=== PATIENT | male | born 1985 | race Caucasian/White ===

== ENCOUNTER 2023-03-15 21:58 | Emergency (ER) | payer MEDICAID ==
[~2023-03-15] VITALS: Ht 180.3 cm; Wt 90.7 kg
[2023-03-15] MEDS ORDERED: ONDANSETRON HCL/PF - ER 4 MG/2 ML VIAL IV ONE (23:00)
[2023-03-15] MEDS ORDERED: KETOROLAC TROMETHAMINE INJ 30 MG/ML VIAL IV ONE (23:00)
--- NOTE | 2023-03-15 23:05 | NUR ---
BIBSELF C/O RIGHT SIDE FLANK PAIN STARTED AT 5PM. PT AAO X 4, BREATHING UNLABORED. PT ATTACHED TO MONITOR AND PULSE OX. AWAITING MD URIBE.
[2023-03-15] MEDS ORDERED: ONDANSETRON HCL/PF 4 MG/2 ML VIAL ONE (23:12)
[2023-03-15] MEDS ORDERED: KETOROLAC TROMETHAMINE INJ 30 MG/ML VIAL ONE (23:12)
--- NOTE | 2023-03-15 23:16 | NUR ---
PROVIDE PT WITH URINE CUP; AWAITING URINE SAMPLE
--- NOTE | 2023-03-15 23:18 | NUR ---
IV line established at LAC 20g, blood drawn and sent to lab
[2023-03-15 23:27] LABS: BASOPHILS # (AUTO) 0.1 K/uL (0.0-0.2); BASOPHILS % (AUTO) 0.6 % (0.0-2.0); EOSINOPHILS % (AUTO) 0.5 % (0.0-6.0); HEMATOCRIT 42 % (39-51); HEMOGLOBIN 13.6 g/dL (13.5-17.5); LYMPHOCYTES # (AUTO) 1.4 K/uL (0.8-4.8); MEAN CORPUSCULAR HGB CONC 33 g/dl (31.0-36.0); MEAN CORPUSCULAR VOLUME 95 fL (80-96); MONOCYTES # (AUTO) 0.5 K/uL (0.1-1.30); MONOCYTES % (AUTO) 3.9 % (2.0-12.0); NEUTROPHILS # (AUTO) 11.7 K/uL (1.8-8.9); PLATELET COUNT (AUTO) 255 K/uL (150-450); RED BLOOD CELL COUNT(AUTO) 4.39 MIL/uL (4.5-6.0); WHITE BLOOD COUNT (AUTO) 13.8 K/uL (4.3-11.0)
--- NOTE | 2023-03-15 23:31 | NUR ---
PT TAKEN TO CT DEPT
[2023-03-15 23:37] LABS: CALCIUM, SERUM 9.8 mg/dL (8.5-10.1); CREATININE 1.2 mg/dL (0.6-1.3); POTASSIUM 3.6 mmol/L (3.5-5.1)
[2023-03-15 23:43] LABS: ALBUMIN 4.3 g/dL (3.4-5.0); BILIRUBIN,DIRECT 0.1 mg/dL (0.0-0.2); BILIRUBIN,TOTAL 0.4 mg/dL (0.2-1.0); TOTAL PROTEIN, SERUM 8.1 g/dL (6.4-8.2)
--- NOTE | 2023-03-16 00:20 | NUR ---
pt still unable to provide urine sample.
[2023-03-16 00:51] LABS: BILIRUBIN,URINE NEGATIVE (NEGATIVE); COLOR,URINE YELLOW (YELLOW); LEUKOCYTE ESTERASE ,URINE NEGATIVE (NEGATIVE); NITRITE, URINE NEGATIVE (NEGATIVE); PROTEIN,URINE NEGATIVE (NEGATIVE); UGLUCOSE NEGATIVE (NEGATIVE); UROBILINOGEN,URINE 0.2 EU/dL (0.2)
[2023-03-16] MEDS ORDERED: HYDR-3980 PO (04:37)
[2023-03-16] MEDS ORDERED: ONDA4TAB5 PO (04:37)
--- NOTE | 2023-03-16 04:57 | NUR ---
Patient discharged to home in stable condition. Written and verbal after care instructions given. Patient verbalizes understanding of instruction. Pt is ambulatory with a steady gait
[2023-03-16 04:58] VITALS: BP 132/78; TEMP 98.6; O2SAT 96
[2023-03-16] MEDS ORDERED: HYDR-4275 PO (05:31)
== END 2023-03-16 04:58 | disposition home or self-care (01) ==
LOC: ER 22:00
DX: N20.1 Calculus of ureter (principal); R10.31 Right lower quadrant pain; Z60.2 Problems related to living alone; Z79.899 Other long term (current) drug therapy
CPT/HCPCS: 99285; 74176; 96374; 85025; 80048; 83690; 80076; 81003; 36415; J1885; J2405